=== PATIENT | female | born 1960 | race Caucasian/White ===

== ENCOUNTER 2019-06-22 15:14 | Emergency (ER) | payer BC, SELFPAY ==
[2019-06-22 15:16] VITALS: BP 162/74; PULSE 89; RESP 18; TEMP 37.2; O2SAT 97; BMI 38.4
--- NOTE | 2019-06-22 16:08 | RAD_ITS ---
STUDY: X-RAY - RIGHT KNEE REASON FOR EXAM: Female, 59 years old. R LEG PAIN, FELL ABOUT 3 WKS AGO, SWELLING AND PAIN HAS MOVED FROM KNEE TO CALF TECHNIQUE: 4 view(s) of the knee. COMPARISON: None. FINDINGS: Normal visualized distal femur. Normal visualized proximal tibia and fibula. Normal proximal tibiofibular articulation. Mild narrowing of the medial femorotibial compartment. There is mild degenerative arthrosis of the lateral femorotibial compartment. Normal patellofemoral articulation. There is a soft tissue prominence in the suprapatellar region suggesting a small volume joint effusion. The soft tissue structures are unremarkable. There is a punctate density in the lower patellar tendon region that could represent a dystrophic calcification or radiopaque foreign body. RAD/Knee 4 or More Views IMPRESSION: 1. Small joint effusion 2. Punctate density in the lower patellar tendon region that could represent a dystrophic calcification or radiopaque foreign body. Electronically Signed: Antwon Castellano MD (Bro[place]) at 16:31 EST , Service support ,
--- NOTE | 2019-06-22 17:34 | ED.DCSUM_ITS ---
History of Present Illness Informant: Patient, Family Occurred: Weeks - 2 weeks Mechanism/Context: Fall Onset: Weeks - 2 weeks Context: Sudden Onset Timing: Continuous Quality of Pain: Sharp, Aching Location: right knee Current Severity: Severe Maximum Severity: Severe Worsened by: walking Relieved by: rest Associated Symptoms: Negative for: Parasthesia, Weakness, Loss of Funtion Narrative: 59-year-old female presents to the emergency department with right knee pain and right leg swelling. She initially had a mechanical fall at home 2 weeks ago landing on her right knee. She has had worsening pain and swelling in her knee since that time. She has not yet been evaluated. She has clicking and popping with stairs and her knee feels similar to when she had a meniscal injury to her left knee. No recent travel or surgery no history of DVT or PE she is not on hormones but she has had progressively worsening leg swelling and she is concerned for blood clot. Tetanus Immunization: Unknown Prior similar symptoms: Yes Recent Illness/Hospitalization: No <Aaron Mantilla - Last Filed: 06/22/19 17:37> <Enrico Mora - Last Filed: 06/22/19 20:18> Chief Complaint: Lower Extremity Injury Past Medical History Prior records reviewed: Yes Past Medical History: - - GERD Surgical History: - - Meniscus repair left knee Lives: With Family Smoking Status: Former smoker Alcohol: Occasional Drugs: None <Aaron Mantilla - Last Filed: 06/22/19 17:37> <Enrico Mora - Last Filed: 06/22/19 20:18> - Allergies and Home Meds Allergies/Adverse Reactions: Allergies No Known Allergies Allergy (Verified 06/22/19 16:00) Primary Care Physician: Essence Locke DO [STAFF PHYSICIAN] - As soon as possible Yung Vazquez [Primary Care Provider] - Review of Systems All systems negative except as indicated General: Denies: Chills, Fever, Malaise Eyes: Denies: Visual changes - bilaterally, Blurred Vision - bilaterally, Diplopia ENT: Denies: Rhinorrhea, Sore throat Cardiovascular: Denies: Chest pain, Palpitations, Heart racing Respiratory: Denies: Dyspnea, Cough, Dyspnea on exertion Gastrointestinal: Denies: Abdominal pain, Nausea, Vomiting, Diarrhea Genitourinary: Denies: Dysuria, Hematuria, Frequency Musculoskeletal: Reports: Swelling, Extremity Pain. Denies: Myalgias, Arthralgias, Neck pain, Back pain Skin: Denies: Rash, Abscess, Abrasions, Wounds Neurological: Denies: Headache, Weakness, Parasthesia, Numbness Psych: Denies: Depression, Anxiety <Aaron Mantilla - Last Filed: 06/22/19 17:37> Physical Exam Vital Signs/Narrative: Vital Signs Temp Pulse Resp BP Pulse Ox 06/22/19 15:16 98.9 F 89 18 162/74 H 97 Inital Vital Signs reviewed: Yes - Extremity Exam Right Knee: - - Patient has swelling diffusely of the right knee with tenderness mostly laterally on palpation. Skin intact. No signs of infection. No deformity. Patient has swelling of her calf but no calf pain on palpation no redness no warmth no palpable cords compartment is soft she has normal range of motion actively of her knee she has normal DP and PT pulses as well as normal capillary refill and sensation of all 5 toes. General: Well nourished, Well developed Head: Normocephalic, Atraumatic Eyes: Perrl, EOMI ENT: No Trauma, Moist Mucous Membranes Neck: Nontender, Full ROM Cardiovascular: Regular rate, Regular rhythm Respiratory: No distress, CTA bilaterally, Chest nontender Abdomen: Soft, Nontender, Nondistended, Normal bowel sounds, No masses Back: Nontender Skin: Normal color, No rash, No Trauma Neurological: Alert, Oriented x3, Normal Strength, Normal Sensation Psychological: Normal affect, Normal Mood <Aaron Mantilla - Last Filed: 06/22/19 17:37> Vital Signs/Narrative: Vital Signs Resp 06/22/19 18:06 18 <Enrico Mora - Last Filed: 06/22/19 20:18> Diagnostic/Tx/Re-eval - Medical Decision Making X-ray right knee was obtained showing a small effusion no other acute abnormality. Patient reassured. She will follow-up with orthopedics Dr. Locke, she has seen her in the past. She already has crutches and will continue to rest ice and elevate and use anti-inflammatories. At this time I discussed with patient on the weekend we do not have ultrasound available but I will scheduled to have one done first thing Monday morning, tomorrow morning. She does not have any criteria to meet high risk for Lovenox treatment at this time. <Aaron Mantilla - Last Filed: 06/22/19 17:37> - Medical Decision Making Clinical Impression(s) from Imaging Studies Knee X-Ray 06/22/19 16:08 IMPRESSION: 1. Small joint effusion 2. Punctate density in the lower patellar tendon region that could represent a dystrophic calcification or radiopaque foreign body. 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 Agree with plan of work-up. Perform on [id number] evaluation. Mechanical fall 2 weeks ago with right knee injury. Occasional catching and locking. Similar events left knee with surgical repair by Dr. Locke in the past. No head injuries. Exam negative varus and valgus, knee extensor mechanism intact. Neuro vas intact distally. X-ray per radiology notes small joint effusion. Patient no PE risk factors however requested ultrasound, is currently not available. Low risk for concerns for DVT, will have patient return for outpatient ultrasound in the morning. She will follow-up with her orthopedist for reevaluation of her right knee. All questions were answered. <Enrico Mora - Last Filed: 06/22/19 20:18> ED Disposition <Aaron Mantilla - Last Filed: 06/22/19 17:37> <Enrico Mroa - Last Filed: 06/22/19 20:18> - Plan for ED Patient: Disposition: Home or Assisted Living Diagnosis: Right knee sprain, Right leg swelling Instructions: Knee Sprain Referrals: Yung Vazquez [Primary Care Provider] - Essence Locke DO [STAFF PHYSICIAN] - As soon as possible
[2019-06-22 18:06] VITALS: RESP 18
== END 2019-06-22 18:06 | disposition home or self-care (01) ==
PROVIDERS: Emergency Provider Physician Assistant Medical; PCP Family Medicine
DX: S83.91XA Sprain of unspecified site of right knee, initial encounter (principal); R60.0 Localized edema; Z87.891 Personal history of nicotine dependence
CPT/HCPCS: 73564; 99282

== ENCOUNTER → 2019-06-23 10:38 | Outpatient (CLI) | payer BC, SELFPAY ==
[2019-06-22 15:16] VITALS: BMI 38.4
== END ==
PROVIDERS: PCP Family Medicine; Visit Provider Physician Assistant Medical
DX: M79.604 Pain in right leg (principal)
CPT/HCPCS: 93971

== ENCOUNTER → 2019-09-12 17:54 | Outpatient (CLI) | payer BC, SELFPAY ==
[2019-09-12 14:44] VITALS: BMI 38.4
[2019-09-12 17:56] LABS: Pathologist Comment May follow
[2019-09-12 20:35] LABS: Synovial Fld Mononuclear WBC % 97.6 %; Synovial Fld Polynuclear WBC # 0.007 10^3/uL; Synovial Fld Polynuclear WBC % 2.4 %
[2019-09-12 21:35] LABS: AUTO B FLUID DILUENT BKGD CT WBC <0.1 RBC <0.01 (W<.1,R<.01)
[2019-09-12 21:36] LABS: Appearance /Synovial Fluid Sl Cl (CLEAR); Color / Synovial Fluid Yellow (Pale Yellow); RBC /Synovial Fluid 788 /mm3 (0); Source- Body Fluid SYNOVIAL
[2019-09-12 21:37] LABS: Lymph 48 %; Monocyte /Synovial Fluid 43 %; Neutrophil 4 % (0-25); Other Cell /Synovial Fluid 5 %
[2019-09-13 09:14] LABS: Pathologist Review Reviewed
[2019-09-16 00:22] LABS: GLUCOSE, SYNOVIAL FLUID 94 mg/dL (.); PROTEIN, SYNOVIAL FLUID 3.3 g/dL (.)
== END ==
PROVIDERS: Visit Provider Orthopaedic Surgery
DX: M17.11 Unilateral primary osteoarthritis, right knee (principal)
CPT/HCPCS: 82945; 84157; 87070; 87075; 87205; 89050; 89051; 89060

== ENCOUNTER 2019-11-04 14:24 | Outpatient (RCR) | payer BC, SELFPAY ==
[2019-10-08 11:12] VITALS: BMI 38.4
--- NOTE | 2019-11-04 18:45 | HP.FCE ---
Floor (Occasional 1-33% of Day): 20# Floor (Frequent 34-66% of Day): 10# Floor (Constant 67-100% of Day): NA Floor PDL: Light Knee (Occasional 1-33% of Day): 25# Knee (Frequent 34-66% of Day): 12# Knee (Constant 67-100% of Day): NA Knee PDL: Light Waist (Occasional 1-33% of Day): 25# Waist (Frequent 34-66% of Day): 12# Waist (Constant 67-100% of Day): NA Waist PDL: Light Shoulder (Occasional 1-33% of Day): 15# Shoulder (Frequent 34-66% of Day): 8# Shoulder (Constant 67-100% of Day): NA Shoulder PDL: Sedentary-Light Overhead (Occasional 1-33% of Day): 15# Overhead (Frequent 34-66% of Day): 8# Overhead (Constant 67-100% of Day): NA Overhead PDL: Sedentary-Light Comments: pt demo floor and knee high lifts with poor lift mechanics due to pain in knees and limited ability to squat and brass pickler weight, pt bent forward at waist to brass pickler weight. Bending: Occasional Ability (1-33% of day) Squatting: Occasional Ability (1-33% of day) Comments: low occasional ability with external support Kneeling: No Ablility (0% of day) Reaching out: Frequent Ability (34-66% of day) Comments: while sitting Reaching up: Frequent Ability (34-66% of day) Comments: while sitting Sitting: Frequent Ability (34-66% of day) Walking: Occasional Ability (1-33% of day) Comments: low occasional ability Standing: Occasional Ability (1-33% of day) Comments: low occasional ability with shifting body weight Duration Sedentary Sedentary Light Light Light Medium Medium Medium Heavy Very Heavy Heavy Occasional (0-33% of day) Frequent (34-66% of day) Constant (67-100% of day) 10 # Negligible Negligible 15 # 8 # Negligible 20 # 10# Negli. 35 # 18 # 7 # 50 # 25 # 10 # 75 # 100 # >100 # 38 # 50 # >50 # 15 # 20 # >20 # Height: 1.57 m Weight:: 97.522 kg Hand Dominance: right Medical History Including Restrictions: Pt states she was in good health until she tore her left meniscus in [employer] about 7-8 years ago. pt states she recovered well from this surgery. This pt states she injured her right knee by slipping on her steps end of 2019. pt states she ended up in ER due to right leg pain on June 22, 2019. Pt was referred to Dr. Locke for follow up. Did see Dr. Locke on June 27, 2019 who ordered a MRI. July 18, 2019 with meniscus tear and OA. Pt has not had therapy on her right knee. But pt did go to September 12, 2019 to have her knee drained of fluid. pt states her pain fluctuates and limits her with ADls and IADLs. Pt also reports generalized weakness due to limited functional activity level she was at prior to her injury. Diagnoses: Right Knee OA Symptoms: Right knee edema. Right knee pain. Left knee pain Pain: Pt states pain at rest 6/10. Pt states no medication taken at this time. 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 pts states she works 8-10 hr shifts where she is running the [employer] center lifting 50#, standing, walking, bending. pt has concerns with return to her job with knee pain and swelling. Behavioral: pt was cooperative throughout assessment ADLS: Pt lives alone in a ranch home with 3 entry steps with 1 rail. Pt has flight of stairs to basement but does not need to use them. pt has first floor laundry and reports she is WILL with laundry tasks. Pt states she has a walk-in shower with a shower chair for bathing, comfort high toilet. Reports WILL with bathing and dressing. pt states she does her own cleaning, cooking at her own pace. pt states her son in law does the yard work. Pt states she does drives ind. and shops for small items at a small store. ROM: pt demo all ROM WFL. pt limited with right knee flex at 105/120and left knee flex at 110/120 Strength: pt demo right quad/hamisting mmt at 3/5 right hip flexion at 4/5. 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 pt had increase in medial side of right knee. pt states pain is 8/10 heart rate ranged from 105-120. Pt can bend forward on a occasional ability Squatting: pt demo the ability to squat three times with external support. pt states pain in right knee increased to 8/10 and she had left knee pain at 7/10 pt heart rate increased 90 to 105. Pt can squat on a low occasional ability with use of external support. Kneeling: No abillity Reaching out/up: pt demo the ability to reach out/up three times, ten times and ten times rapidly. Pt completed this task while sitting- heart rate ranged from 90- 105 pt can reach up/out on a frequent ability while sitting. Walking: Pt demo the ambulate 10 min with an antalgic gait pattern ? pt reported tightness feeling in her right knee and pain 9/10. Pts heart rate ranged from 89-113 pt can ambulate on a low occasional ability. Standing: pt demo the ability to stand for 1 min 20 sec. pt shifting body weight off right LE. pain in right knee 8/10 and reports a feeling of tightness. pt can stand on a low occasional ability with shifting body weight. Sitting: Pt demo the ability to sit for 50 min with no expressed or apparent discomfort. pt can sit on a frequent ability Climbing Stairs: pt demo the ability to ascend ten steps with right leg step up with use of bilateral hand rails, pt desended steps sideways and holding onto rail. Floor Lift: pt demo the ability to lift 20# maximally from floor level with poor lift mechanics. Pt unable to squat to brass pickler weight and bent at waist to brass pickler from this level. Pt report right knee pain 9/10. Knee Lift: pt demo the ability to lift 25# maximally from knee level with poor lift mechanics. Pt unable to squat to brass pickler weight and bent at waist to brass pickler from this level. Pt report right knee pain 12/25. Waist Lift: Pt demo the ability to lift 25# maximally from waist level with fair ability. Shoulder Lift: pt demo the ability to lift 15# maximally from this level. Overhead Lift: pt demo the ability to lift 15# maximally from this level. Carrying: pt demo the ability to carry 15# for 6 feet. Right knee pain 12/25 and heart rate ranged from 90-120. Comments: Pt limited with tasks due to increase in knee pain.
--- NOTE | 2020-03-17 13:44 | HP.OT.NRP ---
DOUGLAS KUO was seen in my office for initial evaluation on . The following Plan of Care was established for this patient: This patient was last seen in our office 11/04/19. Pertinent comments regarding their Occupational therapy will appear below: pt seen for FCE only At this point I will be discontinuing this patient from occupational therapy. I would be happy to see this patient again in the future if found appropriate by the physician. Thank you! Shannon Zuñiga, OTR/L, CHT
== END 2019-11-04 19:00 | disposition home or self-care (01) ==
LOC: OT 14:24
PROVIDERS: Referring Provider Orthopaedic Surgery; Visit Provider Orthopaedic Surgery
DX: M17.11 Unilateral primary osteoarthritis, right knee (principal)
CPT/HCPCS: 97750

== ENCOUNTER → 2020-03-26 16:30 | Outpatient (CLI) | payer BC, SELFPAY ==
[2019-11-28 10:13] VITALS: BMI 38.4
== END ==
PROVIDERS: PCP Family Medicine; Referring Provider Family Medicine; Visit Provider Family Medicine
DX: Z11.59 Encounter for screening for other viral diseases (principal)
CPT/HCPCS: 87635; C9803; U0003

== ENCOUNTER 2020-06-20 11:31 | Emergency (ER) | payer BC, SELFPAY ==
[2019-11-28 10:13] VITALS: BMI 38.4
[2020-06-20 11:32] VITALS: BP 155/81; PULSE 98; RESP 16; TEMP 35.8; O2SAT 96; BMI 40.2
--- NOTE | 2020-06-20 11:47 | CT_ITS ---
STUDY: CT BRAIN WITHOUT CONTRAST REASON FOR EXAM: Female, 60 years old. dizziness RADIATION DOSAGE (If Supplied By Facility): CTDIvol = ( 44.99 ) mGy, DLP = ( 779.24 ) mGycm TECHNIQUE: Transaxial CT imaging of the brain was performed without administration of intravenous contrast material. Individualized dose optimization techniques were used for this CT. COMPARISON: No relevant priors. FINDINGS Normal size ventricles and extra-axial spaces for the patient''s age. Normal white matter tracts of the cerebral hemispheres. There is no intracranial hemorrhage. There are no findings of an acute ischemic infarction. Normal visualized paranasal sinuses. CT/Brain/Head without Contrast IMPRESSION: No acute intracranial abnormality. Electronically Signed: Gem Hanson MD at 12:39 EST Tel , Service support ,
--- NOTE | 2020-06-20 11:47 | EKG12_ITS ---
Test Reason : DIZZINESS Blood Pressure : / mmHG Vent. Rate : 091 BPM Atrial Rate : 091 BPM P-R Int : 156 ms QRS Dur : 072 ms QT Int : 380 ms P-R-T Axes : 041 002 018 degrees QTc Int : 467 ms Normal sinus rhythm Voltage criteria for left ventricular hypertrophy Abnormal ECG Confirmed by AZUL GOMEZ, EDEN ([id number]), dictionary editor VIBHA SKAGGS ([id number]) on 06/23/2020 12:32:08 PM Referred By: PRINCESS Confirmed By:EDEN LIANG MD
--- NOTE | 2020-06-20 11:47 | RAD_ITS ---
STUDY: X-RAY CHEST REASON FOR EXAM: Female, 60 years old. Chest pain. Lightheadedness. TECHNIQUE: Single AP portable view of the chest. COMPARISON: None. FINDINGS: The lungs are hypoexpanded. There is mild elevation of the right hemidiaphragm. No acute infiltrate or mass. There is no demonstrated pleural abnormality. Normal size heart. Normal mediastinum and alfredo. Normal visualized pulmonary arteries. Normal visualized aortic arch and descending thoracic aorta. The thoracic spine is obscured by the mediastinum. There is degenerative osteoarthritis of the bilateral shoulders. There is no demonstrated abnormality of the visualized soft tissue structures of the upper abdomen. RAD/Chest 1 View (Portable) IMPRESSION: Degenerative changes, as described above. No demonstrated acute cardiopulmonary process. Electronically Signed: Jesus Baltazar DO at 12:41 EST Tel [phone], Service support ,
--- NOTE | 2020-06-20 11:49 | ED.DCSUM_ITS ---
- ER Visit Summary Date of Service: 06/20/20 Chief Complaint: [Dizziness] History of Present Illness: The patient is a 60 F [presents to the emergency department complaint of dizziness that started 3 days ago. Patient describes vertiginous symptoms that were especially severe the first night with episodes of nausea and vomiting. Patient noted that if she laid flat symptoms were much worse therefore she not been laying flat or sleeping well. Patient does have remote history of vertigo but has not had it in many years. She denies any falls or head injuries. She denies recent illness. Patient did had of COVID-19 infection in March 2020. Patient also started over the last couple days having some soreness in her chest that radiates through to her back. She herself does not have any heart history. Patient became concerned and called her primary care physician who instructed her to come to the emergency department. Patient does describe a mild headache.] Physical Examination: [HEENT-PERRLA, EOMI. Cranial nerves II through XII grossly intact. TMs clear. Mucous membranes moist. No adenopathy. Cardiovascular-regular rate and rhythm without murmur or ectopy Lungs-clear to auscultation, chest wall stable without crepitus or subcu emphysema Abdomen-normoactive bowel sounds, soft, nontender, no rebound or rigidity, no peritoneal signs. Neuro ufha-[id number]-[id number] and heel vang testing within normal limits, negative Romberg, negative pronator drift. Hallpike maneuver performed does elicit some symptoms of dizziness with head turned to the left when I lay her down however I do not appreciate any obvious nystagmus. No symptoms elicited with head turn to the right. Patient does state that certain head positions do trigger the symptoms to be worse and that would be with head turned to the left. Extremities-intact ?4, normal range of motion, normal pulses, atraumatic] Test Results: [EKG obtained arrival shows sinus rhythm with a ventricular rate of 91 bpm with some voltage criteria for LVH. CBC with differential is normal. Chemistries normal. Troponin less than 0.015. Chest x-ray 1 view obtained read by myself as no acute disease process. Radiology read the x-ray as no acute disease process and degenerative changes. CT scan of the brain without contrast showed nothing acute. Orthostatic vital signs were negative.] Emergency Department Course and Treatment: [IV line established on arrival. Patient placed on a senior producer. She received Antivert 25 mg p.o. and Zofran 4 mg IV. Patient felt significantly improved after treatment.] Treatment Plan: [Patient will be given a prescription for Antivert and Zofran. She is advised to follow-up with her primary care physician within next 3 to 5 days.] Disposition: [Discharged home in stable condition] Impression: [Benign positional vertigo] This note was generated with [email or web address] dictation software. It may contain incorrect words, spelling, and punctuation that were not noted in review of the chart prior to signing ED Disposition - Plan for ED Patient: Referrals: Yung Vazquez DO [Primary Care Provider] -
[2020-06-20 12:08] VITALS: BP 137/72; BP 139/74; BP 141/71; PULSE 90; PULSE 92; PULSE 93
[2020-06-20] MEDS: Ondansetron 4 MG/2 ML Vial IV (12:09)
[2020-06-20 12:15] LABS: Absolute Lymphocyte Count 1.05 X10^3/uL (0.83-4.51); Absolute Neutrophil Count 3.8 X10^3/uL (2.0-7.7); Basophil# 0.04 X10^3/uL; Basophil% 0.7 % (0-1); Eosinophil# 0.16 X10^3/uL; Eosinophils% 2.9 % (0-5); Hematocrit 42.6 % (37-47); Lymphocyte # 1.05 X10^3/ul (4.0); Lymphocyte % 19.1 % (19-41); Mean Corp Hgb Conc 32.9 g/dL (32-36); Mean Corpuscular Hgb 30.1 pg (27.0-32.0); Mean Corpuscular Volume 91.6 fL (81-99); Mean Platelet Vol. 9.5 fl (6.2-12.0); Monocyte# 0.44 X10^3/uL; NRBC Flagged by Analyzer 0 % (0-5); Neutrophil # 3.77 X10^3/uL (2.7-7.7); Neutrophil % 68.8 % (47-70); Platelet Count 218 K/mm3 (150-450); RBC Distribution Width CV 12.3 % (11.6-14.6); RBC Distribution Width SD 41.3 fl (35.1-43.9); Red Blood Count 4.65 M/mm3 (4.2-5.4); White Blood Count 5.5 K/mm3 (4.4-11.0)
[2020-06-20] MEDS: 0.9% Normal Saline 1,000 ML 150 ML IV (12:19)
[2020-06-20] MEDS: Meclizine HCl 25 MG Tablet PO (12:19)
[2020-06-20 12:32] LABS: Anion Gap 5 (5-15); BUN 10 mg/dL (7-18); BUN/Creat Ratio 13.6 RATIO (10-20); Calcium,Total 9.2 mg/dL (8.5-10.1); Chloride 107 mmol/L (98-107); Creatinine, Serum 0.73 mg/dL (0.55-1.02); EST Glomerular Filtration Rate 85 mL/min (>60); Est Glom Filt Rate - Afr Amer 103 mL/min (>60); Glucose 93 mg/dL (74-106); Potassium 3.8 mmol/L (3.5-5.1); Sodium Level 140 mmol/L (136-145)
--- NOTE | 2020-06-20 13:06 | ED.DEP ---
ED Disposition - Plan for ED Patient: Instructions: ED BPV Vertigo Prescriptions: Meclizine HCl [Antivert] 25 mg PO 4X/DAY PRN PRN #20 tab PRN Reason: Dizziness Transmission Status: Pending to [facility] Ondansetron [Zofran Odt] 4 mg PO Q8H PRN PRN #10 tab PRN Reason: Nausea Transmission Status: Pending to [facility] Referrals: Yung Vazquez DO [Primary Care Provider] - 3-5 Days
[2020-06-20 13:12] VITALS: BP 144/65; PULSE 77; RESP 18; O2SAT 98
== END 2020-06-20 13:25 | disposition home or self-care (01) ==
LOC: ED 12:19
PROVIDERS: Emergency Provider Emergency Medicine; PCP Family Medicine
DX: H81.10 Benign paroxysmal vertigo, unspecified ear (principal)
CPT/HCPCS: 70450; 71045; 80048; 84484; 85025; 93005; 96374; 99284; J7030; A4216; J2405

== ENCOUNTER → 2020-07-13 07:57 | Outpatient (CLI) | payer BC, SELFPAY ==
[2020-06-20 11:32] VITALS: BMI 40.2
--- NOTE | 2020-07-13 08:18 | MRI_ITS ---
STUDY: MRI BRAIN WITH AND WITHOUT CONTRAST REASON FOR EXAM: Female, 60 years old. VERTIGO, HEADACHE TECHNIQUE: Standardized multiplanar fat and water weighted pulse sequences were obtained. IV Dotarem 19ml was administered for the contrast portion of the examination. COMPARISON: CT of the head dated 06/20/2020 FINDINGS: Normal size of the ventricles and extra-axial spaces for the patient''s age. There is a single small right periventricular white matter hyperintensity, nonspecific but most commonly seen with chronic microvascular ischemic changes. Normal bilateral basal ganglia. Normal venous enhancement. There is no enhancing intra-axial or extra-axial abnormality. Normal sella turcica, pituitary gland, infundibular stalk, optic chiasm and hypothalamus. Normal tectal plate and pineal gland. Normal midbrain, amada and medulla. Normal cerebellum. MRI/Brain W/WO Contrast IMPRESSION: No acute intracranial abnormality. Electronically Signed: Gem Hanson MD at 11:01 EDT Tel , Service support ,
== END ==
PROVIDERS: PCP Family Medicine; Referring Provider Family Medicine; Visit Provider Family Medicine
DX: R42 Dizziness and giddiness (principal); R51.9 Headache, unspecified
CPT/HCPCS: 70553; A9575

== ENCOUNTER → 2020-07-24 12:04 | Outpatient (CLI) | payer BC, SELFPAY ==
--- NOTE | 2020-07-24 12:26 | BI_ITS ---
MAMMOGRAPHY - BILATERAL SCREENING REASON FOR EXAM: Female, 60 years old. Routine annual screening examination. PERTINENT HISTORY: Sister with breast cancer. TECHNIQUE: Digital bilateral breast sigifredo (3D mammographic acquisition) in the CC and MLO projections. 2-D mediolateral oblique (MLO) and craniocaudad (CC) views of both breasts were obtained. CAD: Full Field Digital Mammography with Computer Added Detection was performed. COMPARISON: Comparison is made with prior outside examination of 06/25/2010. FINDINGS: Breast Composition: There are scattered areas of fibroglandular density. There are no dominant masses or suspicious calcifications. No other significant abnormalities are identified. There has been no significant change since the prior study. BI/SCRN MAMM (CAD)W/SIGIFREDO BILAT IMPRESSION: Stable bilateral screening mammogram. Yearly follow-up mammogram recommended. (A) ASSESSMENT CATEGORY: BIRADS Category 1: Negative. A letter regarding these results will be sent to the patient by the facility within 30 days. Approximately 10% of breast cancers are not detected by mammography. A normal mammogram should not delay biopsy of a clinically suspicious abnormality. [id number] Electronically Signed: Lorenzo Murphy MD at 15:41 EDT , Service support ,
== END ==
PROVIDERS: PCP Family Medicine; Referring Provider Family Medicine; Visit Provider Family Medicine
DX: Z12.31 Encounter for screening mammogram for malignant neoplasm of breast (principal)
CPT/HCPCS: 77063; 77067

== ENCOUNTER 2023-10-22 14:06 | Emergency (ER) | payer BC, MEDICARE, SELFPAY ==
[2023-10-22 14:07] VITALS: BP 134/74; PULSE 92; RESP 18; TEMP 36.8; O2SAT 97; BMI 41.4
--- NOTE | 2023-10-22 14:31 | CT_ITS ---
STUDY: CT BRAIN WITHOUT CONTRAST REASON FOR EXAM: Female, 63 years old. dizziness Individualized dose optimization techniques were used for this CT. TECHNIQUE: Transaxial CT imaging of the brain was performed without administration of intravenous contrast material. COMPARISON: None FINDINGS: There are calcifications around the carotid artery. These are noted in the cavernous carotid arteries. Normal calvarium. Normal soft tissues. There is mild cerebral atrophy with widening of the extra-axial spaces and ventricular dilatation. There are areas of decreased attenuation within the white matter tracts of the supratentorial brain, consistent with microvascular disease changes. Normal basal ganglia and thalami. Normal brainstem. There is mild cerebellar atrophy. There is no intracranial hemorrhage. There are no findings of an acute ischemic infarction. Normal visualized paranasal sinuses. ASPECTS Score for Acute Strokes: 01/24 CT/Brain/Head without Contrast IMPRESSION: There are no acute findings. Electronically Signed: Anam Carrillo MD at 15:01 EDT ,
--- NOTE | 2023-10-22 14:32 | EX.ED.DYSGE1 ---
HPI History of Present Illness Chief Complaint: Dizziness Informant: patient Onset/Context/Timing Onset: Weeks Context: Gradual Onset Timing: Intermittent Current Severity: Mild Maximum Severity: Moderate Narrative Narrative: 63-year-old female history of prior vertigo she had it 1 to 2 years ago. Said meclizine did not work for her and only made her sleep. She was treated with prednisone and symptoms resolved. 5 weeks ago she had similar onset of symptoms. Denies any headache or head trauma. She is on no blood thinners. Denies any recent illness other than at times when the room spinning badly she gets nauseated and throws up. Denies any arm or leg weakness. Prior similar symptoms: Yes Recent Illness/Hospitalization: No [facility] Medical History Thyroid disease Arthritis Home Medications ?Medication ?Instructions ?Recorded ?Last Taken ?Type levothyroxine 125 mcg tablet 125 mcg PO DAILY 06/22/19 Unknown History benzonatate 100 mg capsule 200 mg (2 x 100 mg) PO TID PRN 04/12/22 Unknown Rx cough #30 caps azithromycin 250 mg tablet 250 mg PO QDAY #6 tabs 06/29/22 Unknown Rx meclizine 25 mg tablet 25 mg PO 4X/DAY PRN PRN Dizziness 10/22/23 Unknown Rx #20 tabs prednisone 20 mg tablet 40 mg (2 x 20 mg) PO DAILY 7 days 10/22/23 Unknown Rx #14 tabs Allergy/AdvReac Type Severity Reaction Status Date / Time No Known Allergies Allergy Verified 10/22/23 14:12 Social History Smoking Status: Former smoker ROS ROS ED ROS Narrative Warm spinning dizziness. Nausea. No headache. No chest pain. No abdominal pain. No fever. Review of Systems ROS Unobtainable: Denies due to encephalopathy Constitutional Constitutional ED: Denies chills or fever(s) Eyes Eyes: Denies blurry vision ENT ENT ED: Denies ear pain Cardiovascular Cardiovascular: Denies chest pain or palpitations Respiratory/Chest Respiratory/Chest: Denies cough or dyspnea Gastrointestinal Gastrointestinal: Reports nausea and vomiting; Denies abdominal pain, constipation, diarrhea or melena Genitourinary Genitourinary ED: Denies dysuria or hematuria Musculoskeletal Musculoskeletal: Denies arthralgias Integumentary Denies abscess Neurologic Neurologic: Denies headache(s) Psychiatric Psychiatric: Denies anxiety Endocrine Endocrinology: Denies cold intolerance Hematologic/Lymphatic Hematologic/Lymphatic: Reports none; Denies easy bruising or lymphadenopathy Allergic/Immunologic Allergic/Immunologic ED: Denies mouth swelling, tongue swelling or urticaria EXAM Physical Exam Narrative Exam Narrative: Well-appearing 63-year-old female. Vital signs stable afebrile. She is sitting upright in bed. No distress. No symptoms. H EENT exam normal. Pupils round react to light. No facial droop. Normal speech. No trauma. TMs normal bilaterally. No cerumen impaction. Neck nontender no lymphadenopathy. Lungs clear to auscultation. Heart regular rhythm no murmur. Chest wall and ribs nontender. Abdomen soft nontender. Moving all 4 extremities. 5 out of 5 director integrated strength. Equal and symmetrical. Dorsi plantarflexion intact. [id number] within normal limits. Neurologic exam normal. When she turns her head to the right it does make her more dizzy. There is no nystagmus. Her NIH score is 0. Const Vital Signs: 10/22/23 14:07 Temperature 98.2 F Temperature Source Temporal Pulse Rate 92 Respiratory Rate 18 Blood Pressure 134/74 H Blood Pressure Mean 94 Pulse Ox 97 Oxygen Delivery Method Room Air Positive well nourished and well developed; Negative for cachectic, contractures or unkempt General Appearance ED: well developed and NAD; Negative for unkempt, cachectic, contractures, cyanotic, diaphoretic or pallor Nutritional Appearance: Negative for cachectic HEENT Reports TM's clear and moist mucous membranes Negative for trauma or tenderness Tympanic Membrane ED: Yes TM's clear Eyes Negative for PERRL or EOMs intact bilaterally General Eye ED: Negative for pale conjunctiva or scleral icterus Neck no lymphadenopathy, supple and no JVD General: Negative for tenderness or other Lymph Lymphatic: Negative for other Chest Wall inspection of chest normal and palpation of chest normal Chest: Negative for other Resp normal respiratory effort and clear to auscultation bilaterally Effort and Inspection: Negative for retractions Auscultation: Negative for rales, rhonchi, wheezes or diminished lung sounds Cardio regular rate, regular rhythm, S1 normal heart sound, S2 normal heart sound and no murmurs Palpation: Negative for palpable S3 or palpable S4 Rate: Negative for bradycardia or tachycardic Rhythm: Negative for abnormal rhythm GI normal to inspection, nondistended, normoactive bowel sounds, non-tender, non-distended and no masses Inspection: Negative for abdominal distention Auscultation: normoactive bowel sounds Palpation: soft; Negative for tender, guarding or rebound tenderness present Back/Spine no CVA tenderness General Back: Negative for CVA tenderness Cervical Spine: Negative for cervical spine tenderness Thoracic Spine / Upper Back: Negative for thoracic spinal tenderness Lumbar Spine / Lower Back: Negative for lumbar spinal tenderness Extremity normal to inspection General Extremety ED: Negative for edema, tenderness or other findings General Extremity: Negative for edema or other findings Neuro oriented x3 and CN's II-XII intact bilaterally Neuro Narrative: Awake alert and oriented. NIH is 0. Sensorium / Orientation: alert Motor Exam: strength 5/5 throughout; Negative for general weakness or strength abnormal Psych mental status grossly normal Appearance: Negative for unkempt Attitude: No agitated Mood & Affect: Negative for depressed, anxious or tearful Skin no rashes or lesions noted, no wounds and skin turgor normal General Skin Exam: elasticity normal; Negative for jaundice or pallor Lesions: No lesion noted Rashes: No rashes noted Trauma: Negative for abrasion Wounds: Negative for wounds noted MDM MDM MDM Narrative Medical decision making narrative: Please [id number] female with room spinning dizziness consistent with vertigo. Positive Hallpike. No signs of stroke at this time. CAT scan labs pending. She had a prior MRI 3 years ago that was negative. Repeat exam at 3:30 PM patient doing well. I will she will be placed on meclizine for vertigo. Her daughter stated to her that she thought it helped her in the past. She did want me to write her prescription for prednisone which I am happy to do but I explained to her there is no evidence that I know of that that treats vertigo. She will follow-up if this is not improving for physical therapy for the vertigo. History & Record Review Discussion w/independent historian: Patient Additional record(s) reviewed:: Prior inpatient record, Prior outpatient record, Prior ED visit and Prior labs Lab Data Attestation: I reviewed the patient's lab results. Lab results narrative: CBC normal. White count of 4. H&H 13 and 40. Platelets 109. Electrolytes unremarkable gap normal. Normal BUN/creatinine. Glucose 95. CT brain no acute abnormality. Labs: Laboratory Results - last 24 hr 10/22/23 14:38 WBC 4.5 RBC 4.36 Hgb 13.3 Hct 40.5 MCV 92.9 MCH 30.5 MCHC 32.8 RDW Std Deviation 41.8 RDW Coeff of Valentine 12.3 Plt Count 189 MPV 9.3 Immature Gran % (Auto) 0.700 Neut % (Auto) 61.9 Lymph % (Auto) 20.9 [place] % (Auto) 9.6 Eos % (Auto) 5.8 H Baso % (Auto) 1.1 H Absolute Neuts (auto) 2.8 Absolute Lymphs (auto) 0.94 Nucleated RBC % 0 Sodium 140 Potassium 3.9 Chloride 107 Carbon Dioxide 29.0 Anion Gap 4 L BUN 9 Creatinine 0.76 Estim Creat Clear Calc 78.77 Est GFR (MDRD) Af Amer 98 Est GFR (MDRD) Non-Af 81 BUN/Creatinine Ratio 11.9 Glucose 95 Calcium 9.5 Radiography Diagnostic Testing: Clinical Impression(s) from Imaging Studies Brain CT 10/22/23 14:31 IMPRESSION: There are no acute findings. Electronically Signed: Anam Carrillo MD at 15:01 EDT Reading Location ID and State: [facility] / [place] , Service support , Discharge Plan Triage Chief Complaint: Dizziness ED Provider: Geovanni Waite Dx/Rx/DC Orders Clinical Impression: Dizziness, Vertigo Instructions: ED BPV Vertigo Prescriptions: New meclizine 25 mg tablet 25 mg PO 4X/DAY PRN PRN (Reason: Dizziness) Qty: 20 0RF prednisone 20 mg tablet 40 mg PO DAILY 7 Days Qty: 14 0RF No Action benzonatate 100 mg capsule 200 mg PO TID PRN (Reason: cough) Qty: 30 0RF azithromycin 250 mg tablet 250 mg PO QDAY Qty: 6 0RF Rx Instructions: 2 tablets today, then 1 tablet daily on days 2 through 5 levothyroxine 125 MCG tablet 125 mcg PO DAILY Primary Care Provider: Oliver Quinones Referrals: Yung Vazquez DO [Non-Staff] - Activity Restrictions/Additional Instructions: Follow-up with your doctor as needed. If the vertigo is not getting better call [facility] get in with her physical therapist some of them specifically do maneuvers with your head and neck that will resolve the vertigo. Prednisone 40 mg a day. Meclizine up to 4 times a day for your vertigo, dizziness symptoms. Follow-up with your doctor if not improving. Your labs and CAT scan today were unremarkable. Elevate your legs to decrease swelling. Print Language: Slovenian Disposition Disposition: Home, Self Care
[2023-10-22] MEDS: Ondansetron 4 MG/2 ML Vial IV (14:42)
[2023-10-22 14:43] LABS: Absolute Lymphocyte Count 0.94 X10^3/uL (0.83-4.51); Absolute Neutrophil Count 2.8 X10^3/uL (2.0-7.7); Basophil# 0.05 X10^3/uL; Basophil% 1.1 % (0-1); Eosinophil# 0.26 X10^3/uL; Eosinophils% 5.8 % (0-5); Hematocrit 40.5 % (37-47); Hemoglobin 13.3 g/dL (12.0-15.0); Lymphocyte # 0.94 X10^3/ul (0.83-4.51); Lymphocyte % 20.9 % (19-41); Mean Corp Hgb Conc 32.8 g/dL (32-36); Mean Corpuscular Hgb 30.5 pg (27.0-32.0); Mean Corpuscular Volume 92.9 fL (81-99); Mean Platelet Vol. 9.3 fl (6.2-12.0); Monocyte# 0.43 X10^3/uL; Monocyte% 9.6 % (0-10); NRBC Flagged by Analyzer 0 % (0-5); Neutrophil # 2.78 X10^3/uL (2.7-7.7); Neutrophil % 61.9 % (47-70); Platelet Count 189 K/mm3 (150-450); RBC Distribution Width CV 12.3 % (11.6-14.6); RBC Distribution Width SD 41.8 fl (35.1-43.9); Red Blood Count 4.36 M/mm3 (4.2-5.4); White Blood Count 4.5 K/mm3 (4.4-11.0)
[2023-10-22 15:11] LABS: Anion Gap 4 (5-15); BUN 9 mg/dL (7-18); BUN/Creat Ratio 11.9 RATIO (10-20); Calcium,Total 9.5 mg/dL (8.5-10.1); Chloride 107 mmol/L (98-107); Creatinine, Serum 0.76 mg/dL (0.55-1.02); EST Glomerular Filtration Rate 81 mL/min (>60); Est Glom Filt Rate - Afr Amer 98 mL/min (>60); Estimated Creatinine Clearance 78.77 ml/min; Glucose 95 mg/dL (74-106); Potassium 3.9 mmol/L (3.5-5.1); Sodium Level 140 mmol/L (136-145)
[2023-10-22 15:58] VITALS: BP 134/81; PULSE 61; RESP 16; TEMP 36.2; O2SAT 97
== END 2023-10-22 16:00 | disposition home or self-care (01) ==
PROVIDERS: Emergency Provider Emergency Medicine; PCP Family Medicine; Visit Provider Emergency Medicine
DX: R42 Dizziness and giddiness (principal); Z87.891 Personal history of nicotine dependence
CPT/HCPCS: 70450; 80048; 85025; 96374; 99283; A4216; J2405

== ENCOUNTER 2023-11-13 14:30 | Outpatient (RCR) | payer BC, MEDICARE, SELFPAY ==
--- NOTE | 2023-11-02 15:50 | HP.PTEVAL ---
Patient's Visit Information Visit Information Visit Information: DOUGLAS KUO is a 63 year old F referred to Physical Therapy by JENY Berg with a diagnosis of vertigo. Date of Evaluation: 11/02/23 Physical Therapist: Malachi Thomas, QUINTENT, OCS, CSCS Visit Plan Frequency: 1-2x /Week Duration: 4-6 Weeks Plan: 1-2x/week as needed for positional treatments as needed. treated L arcenio today and instruct BD exercises Subjective Subjective: had some vertigo 3 yrs ago for 4 weeks and dysfunctional. Prednisone helped. Recently in September, it came back. September 21 having sex and rolled over in bed and spinning started. It lasted and she got sick. Got still and it stopped. Stayed still and it was gone. Has slept there ever since. Coud get up and move and touched padilla to walk hallway and had some movement. Bending can make it worse now. Spinning stopped a while ago. Managed from home. went to hospital October 21 as she was done dealing with it, Had catscan and was good. Diagnosed with vertigo and gave prednisone adn meclizine. Has had some lightheaded with bending and turning quickly. Last 2 ddays have had not many symptoms. moving slower. Still has not lied down to sleep but feeling better with movement. 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 Basic ADLs are I now. Has not been abkle to hang otu with friends lately. Objective Objective: Walks slowly but steadily back to PT I. Trasnfers I, steps reciprocal with one rail. slow to move head with walking hesitant. cervical aROM is WFL , UE AROM is WFL. slight + R HD, , very + L HD with possible up torsional nystagmus of 20 seconds. treated with L arcenio today adn instruct in BD exercises. Balance/Special Test Scores Functional Gait Assessment Score: 26 % Disability: 13.3400 Dizziness Score: 52 Goals Goal 1:: abolish dizzy feeling 100% Goal Time Frame: 4-6 Weeks Goal 2:: Lie down in bed and roll L without dizzyness Goal Time Frame: 4-6 Weeks Goal 3:: DHI score <10 Goal Time Frame: 4-6 Weeks Goal 4:: FGA Goal Time Frame: 4-6 Weeks Rehabilitation Potential Physical Therapy Diagnosis: BPPV likely L and symptoms related. Rehabilitation Potential: Good Anticipated Interventions Patient/Client Instruction: Educate patient on: Condition For the Purpose of:: To improve nutrient delivery to tissue and To increase tolerance to activity/condition/position Comment: psoitional treatments adn ex For the Purpose of:: To increase tolerance to activity/condition/position Text: Thank you for the opportunity to evaluate your patient. For Medicare and Medicare HMO plans, please review the plan of care and approve it. It will need to be FAXED BACK to us at [phone] for Medicare purposes. For Medicare only, by signing this I certify the plan of care. Please let me know if there are questions or concerns regarding this plan of care. Physician Signature: Date:
--- NOTE | 2023-11-13 14:51 | HP.PTDCSUM ---
Discharge Summary D/C summary: It has been my pleasure to treat DOUGLAS KUO referred by JENY Berg, with the diagnosis of vertigo for a total of 3 visit(s). Discharge Date: 11/13/23 Please see the following information for a summary of their discharge status. Subjective Subjective: Pretty good since lastMonday. No dizzyness. A little unsteady in dark at night more feeling odd than unsteay and no falls and does not feel dangerous. Has not tried lying down. Activities: Life is normal. Overall Improvement % Improvement: 85 Objective Objective/Function: - B hallpike мария - roll test FGA improved. MSQ all positions without dizzyness today Goals Goal 1:: abolish dizzy feeling 100% Goal Progress: Goal Met Goal 2:: Lie down in bed and roll L without dizzyness Goal Progress: Goal Met in clinic Goal 3:: DHI score <10 Goal Progress: Goal Met Goal 4:: FGA Goal Progress: Goal Met Plan Plan: d/c D/C Information d/c sentence: If there are questions or concerns regarding this patient's physical therapy, please feel free to call me at [phone]. Thank you for the referral of this patient. Sincerely, Malachi Thomas, DPT, OCS, CSCS Balance/Gait/Functional tests Balance/Special Test Scores Functional Gait Assessment Score: 29 % Disability: 3.3400 Dizziness Score: 0 Improvement % Improvement: 85
== END 2023-11-13 19:00 | disposition home or self-care (01) ==
LOC: PT 14:30
PROVIDERS: PCP Family Medicine; Referring Provider Physician Assistant; Visit Provider Physician Assistant
DX: R42 Dizziness and giddiness (principal)
CPT/HCPCS: 97161; 97530